=== PATIENT | female | born 1995 | race Asian ===

== ENCOUNTER 2017-04-30 19:26 | Emergency (ER) | payer OTHER ==
[~2017-04-30] VITALS: Ht 157.5 cm; Wt 56.0 kg
[2017-04-30] MEDS ORDERED: MOTRIN600 MG PO (21:17)
[2017-04-30] MEDS ORDERED: NORCO 5/3251 TABLET PO (21:17)
[2017-04-30 21:29] VITALS: BP 113/68
== END 2017-04-30 21:29 | disposition home or self-care (01) ==
LOC: EME 19:26
DX: S00.83XA Contusion of other part of head, initial encounter (principal); S20.219A Contusion of unspecified front wall of thorax, initial encounter; V47.6XXA Car passenger injured in collision with fixed or stationary object in traffic accident, initial encounter; Y92.488 Other paved roadways as the place of occurrence of the external cause
CPT/HCPCS: 71020; 99281; 99283